=== PATIENT | female | born 1945 | race Caucasian/White ===

== ENCOUNTER 2024-03-28 16:10 | Emergency (ER) | payer SELFPAY ==
[2024-03-28 16:15] VITALS: BP 118/67
[2024-03-28] MEDS: TYLENOL 650 MG PO (17:57)
[2024-03-28] MEDS: MOTRIN 400 MG PO (17:57)
--- NOTE | 2024-03-28 18:27 | ED.GENMED ---
History of Present Illness
General
Chief Complaint: Musculo-Skeletal Complaint
Source: patient
Exam Limitations: none
Time Seen by Provider: 03/28/24 16:44
Nursing documentation reviewed up to this point in time: agreed with
History of Present Illness
History of Present Illness:
78-year-old female for single history of hypertension presenting to the emergency department today with concerns after a fall hitting her right upper arm. She claims that she got tripped up normally does not fall. Landed directly on her right arm
now with ongoing discomfort. May have hit her head but denies any significant head discomfort loss of consciousness numbness weakness or neck pain.
Review of Systems
Review of Systems
Allergies reviewed?: Yes
All Other Systems: ROS reviewed and negative except as documented in HPI and ROS
Phy Exam
Physical Exam
Physical Exam:
GENERAL: Alert , in no apparent distress
EYE: pupils equal and reactive
NECK: Supple, no significant adenopathy.
ENT: o/p clr, mmm.
CARDIAC: Regular rate and rhythm .
LUNGS: Clear breath sounds bilaterally, no acute respiratory distress, no wheezes/rales/rhonchi
ABDOMEN: Soft, without focal tenderness, no r/g, no cvat
NEUROLOGICAL: Alert and oriented, no focal neuro deficits
SKIN: Warm and dry, skin intact.
MUSCULOSKELETAL: Swelling discomfort to the right upper arm no edema, well perfused.
PSYCH: Normal and appropriate interaction.
Course
Orders/Labs/Results
Orders:
Orders
03/28/24 16:23
Humerus, Right 2 Views [CR Humerus - Right Min 2 View*] Urgent
Comment:
Reason For Exam: pain injury
03/28/24 17:39
CT Head W/o Iv Contrast Urgent
Comment:
Reason For Exam: fal lhit head
Acetaminophen [Tylenol] 650 mg PO NOW STA
Ibuprofen [Motrin] 400 mg PO NOW STA
Vital Signs
Initial and Last Documented VS:
Initial Vital Signs
Temp Pulse Resp BP Pulse Ox
98.5 F 65 17 118/67 98
03/28/24 16:15 03/28/24 16:15 03/28/24 16:15 03/28/24 16:15 03/28/24 16:15
Last Documented Vital Signs
Temp Pulse Resp BP Pulse Ox
98.5 F 65 17 118/67 98
03/28/24 16:15 03/28/24 16:15 03/28/24 16:15 03/28/24 16:15 03/28/24 16:15
MDM/Problems Addressed
MDM/Problems Addressed:
78-year-old female presenting to the emergency department today with concerns of right upper arm discomfort after ground-level fall. Also may have hit her head but denies significant concerns in this regard no loss of consciousness no numbness
weakness or additional issues otherwise. Vital signs are normal. Patient was found to have a proximal humerus fracture. She was placed in a sling and advised for close outpatient follow-up. Otherwise she may have hit her head she is due to her
advanced age CT scan was ordered but this was normal. Patient otherwise stable for outpatient management of humerus fracture. Return precautions given.
*Critical Care Note
Total Time (30-74mins, 75-104mins- exclusive of procedures): Not Applicable
ED Attending Note
-
Portions of this chart may have been created with voice recognition software.� Occasional wrong word or��sound alike� substitutions may have occurred due to the inherent limitations of voice recognition software.
Discharge Plan
Departure
Patient Disposition: Home (Routine Discharge)
Date of Disposition: 03/28/24
Time of Disposition: 18:27
Patient with high blood pressure during this ER visit?: No
Condition: Good
Covid-19: Not Applicable
Discharge Problem:
Fracture of proximal end of right humerus
Instructions: Upper Arm Fracture ED
Prescriptions:
New
oxycodone-acetaminophen [Percocet] 5-325 mg tablet
1 tab PO Q8H PRN (Reason: Pain) Qty: 7 0RF
Referrals:
Bernadette Bobby I., DO [Active] - Follow up in 10 days
NONE,* [Family Provider] -
Activity Restrictions/Additional Instructions:
You came to the emergency department today after a fall. You are found to have a fracture to your proximal humerus. Please wear the sling and follow-up closely with orthopedics for further recommendation. Return to the emergency department any
worsening, new or concerning symptoms.
Interventions
Interventions:
*Risk Screen - Suicide Last Done: 03/28/24 17:50
*General Assessment Last Done: 03/28/24 17:50
*Neglect/Abuse Screening Last Done: 03/28/24 17:50
ED- Fall Risk Assessment Last Done: 03/28/24 17:50
*ED COVID-19 Vaccine History Last Done: 03/28/24 17:50
*Nursing Disposition Last Done: 03/28/24 18:51
ED-Musculoskeletal Assessment Last Done: 03/28/24 17:00
Discharge Date and Time
Discharge Date/Time: 03/28/24 18:53
Print Language: DIVEHI
== END 2024-03-28 18:53 | disposition home or self-care (01) ==
LOC: EMR 16:10
PROVIDERS: EMERGENCY PHYSICIAN Emergency Medicine
DX: S42.201A Unspecified fracture of upper end of right humerus, initial encounter for closed fracture (principal); W19.XXXA Unspecified fall, initial encounter; I10 Essential (primary) hypertension
CPT/HCPCS: 99284; 70450; 73060